=== PATIENT | female | born 1955 | race Caucasian/White ===

== ENCOUNTER 2024-01-29 15:00 | Outpatient (RCR) | payer MEDICARE, OTHER, SELFPAY | END 2024-04-16 07:42 | disposition home or self-care (01) | PROVIDERS: PCP Family Medicine; Visit Provider Physician Assistant | DX: M54.50 Low back pain, unspecified (principal); Z51.89 Encounter for other specified aftercare | CPT/HCPCS: 97110; 97140; 97161 ==

== ENCOUNTER 2024-04-11 21:14 | Emergency (ER) | payer MEDICARE, OTHER, SELFPAY ==
[2024-04-11 21:28] VITALS: BP 142/66; PULSE 62; RESP 16; TEMP 36.6; O2SAT 97; BMI 25.7
--- NOTE | 2024-04-11 22:00 | ED.GENADULT ---
HPI - General Adult General Chief complaint: Laceration/Wound Stated complaint: Laceration R thumb. Time Seen by Provider: 04/11/24 21:35 Source: patient Mode of arrival: ambulatory Limitations: no limitations History of Present Illness HPI narrative: 68-year-old female presenting today with a laceration to the right thumb that occurred while she was slicing cucumbers with a mandoline at home. Last Tdap was 2014. Denies other injuries. Related Data Home Medications ?Medication ?Instructions ?Recorded ?Confirmed bupropion HCl 150 mg 24 hr tablet, 150 mg PO DAILY 04/11/24 04/11/24 extended release gabapentin 600 mg tablet mg PO 04/11/24 sertraline 50 mg tablet 50 mg PO DAILY 04/11/24 04/11/24 Allergies Allergy/AdvReac Type Severity Reaction Status Date / Time No Known Drug Allergies Allergy Verified 04/11/24 21:30 Review of Systems Status of ROS: Reports: 6 or more systems reviewed and unremarkable except as noted in History and below Exam Narrative: Exam Narrative: Well-nourished well-developed patient, slightly anxious. Alert and oriented. Answers questions appropriately. Mood and affect are appropriate. Thoughts are goal oriented and rational. No tangential or magical thinking noted. Patient speaks in full sentences without needing to catch her breath. HEENT: Normocephalic atraumatic. Extraocular muscles are intact. Conjunctivae are moist without any icterus noted. Moist mucous membranes. Extremities: Patient cleanly sliced the lateral outer edge of the tip of the thumb, including the outer distal corner of her nail. No arterial bleeding noted, just a consistent losing. There is no bone visible. Const: Vital Signs, click to edit/add: Vital Signs - 24 hr 04/11/24 21:28 Temperature 98 F Pulse Rate [Pulse Oximeter] 62 Respiratory Rate 16 Blood Pressure [Ri ght Upper Arm] 142/66 H Pulse Oximetry 97 Oxygen Delivery Me thod Room Air Course Course ED Course: There is no skin left for us to put together, hemostatic sutures are not necessary. Fifth finger was cleaned, Gelfoam was applied followed by gauze and dressing to the remainder of the finger. We discussed healing by secondary intention. Tdap was updated today. Vital Signs Vital signs: Initial Vital Signs Temperature 98 F 04/11/24 21:28 Temperature Source Temporal Artery Scan 04/11/24 21:28 Pulse Rate 62 10/26/24 21:28 Respiratory Rate 16 04/11/24 21:28 Blood Pressure 142/66 H 04/11/24 21:28 Blood Pressure Mean 91 04/11/24 21:28 Blood Pressure Position Supine 04/11/24 21:28 Pulse Oximetry 97 04/11/24 21:28 Oxygen Delivery Method Room Air 04/11/24 21:28 Vital Signs Temperature 98 F 04/11/24 21:28 Pulse Rate 62 04/11/24 21:28 Respiratory Rate 16 04/11/24 21:28 Blood Pressure 142/66 H 04/11/24 21:28 Pulse Oximetry 97 04/11/24 21:28 Oxygen Delivery Method Room Air 04/11/24 21:28 Temperature 98 F 04/11/24 21:28 Pulse Rate 62 04/11/24 21:28 Respiratory Rate 16 04/11/24 21:28 Blood Pressure 142/66 H 04/11/24 21:28 Pulse Oximetry 97 04/11/24 21:28 Oxygen Delivery Method Room Air 04/11/24 21:28 Medical Decision Making MDM Narrative Medical decision making narrative: 5-year-old female status post avulsion laceration to the outer tip of the finger. Treated per above. Discharge Plan Discharge Clinical Impression: Laceration Patient Disposition: Home, Self-Care Condition: Stable Additional Instructions: Leave this dressing in place until the morning of 04/13/24. At that time can start daily dressing changes. Keep wound clean and dry. Do not soak such as taking baths, swimming or doing dishes. Follow-up in approximately 1 week with your primary care provider. Watch for signs and symptoms of infection including increasing redness of the area, purulent drainage, or fever. If this occurs follow-up right away with your doctor or return to the ER. Prescriptions: No Action gabapentin 600 mg tablet PO sertraline 50 mg tablet 50 mg PO DAILY bupropion HCl 150 mg tablet extended release 24 hr 150 mg PO DAILY Follow Up/Referrals: Lacy Brandt DO [Primary Care Provider] - Stand Alone [facility] Info Inst[facility]
[2024-04-11] MEDS: TETANUS/DIPHTH/PERTUSSIS 0.5 ML SYRINGE IM (22:05)
== END 2024-04-11 22:31 | disposition home or self-care (01) ==
LOC: ED 22:17
PROVIDERS: Emergency Provider Family Medicine; PCP Family Medicine
DX: S61.011A Laceration without foreign body of right thumb without damage to nail, initial encounter (principal); Z23 Encounter for immunization
CPT/HCPCS: 90471; 90715; 99283

== ENCOUNTER 2024-07-16 10:45 | Outpatient (RCR) | payer MEDICARE, OTHER, SELFPAY ==
--- OUTSIDE RECORDS SUMMARY | 2024-06-03 07:59 | XMS_ITS | Continuity of Care Document ---
Author Name [facility] Organization [facility] Care Team Providers Care Traffic Warehouse Supervisor Name Role Phone [facility] Unavailable Unavailable Medications Combined list of outpatient medications from Department of Defense and Veterans Affairs facilities.Medications provided include 1) outpatient medications from the last 15 months, and 2) patient-reported medications. Medication Details Route Status Patient Instructions Prescription Expires Prescription Number Last Dispense Date Ordering Provider Order Date Order Qty Source BUPROPION XL (bupropion HCl), 150 MG, TAB ER 24H, ORAL, LUPIN PHARMACEU, 90 ea. BOTTLE Active [id number] 3 2022 90 Pharmac y Data Transac tion Service Facilit y BUPROPION XL (bupropion HCl), 150 MG, TAB ER 24H, ORAL, LUPIN PHARMACEU, 90 ea. BOTTLE Active [id number] 4 2023 90 Pharmac y Data Transac tion Service Facilit y GABAPENTIN (GABAPENTIN ), 600MG, TABLET, ORAL, GLENMARK PHARMA, 500 ea. BOTTLE Cancele d [id number] : 2023 0 Pharmac y Data Transac tion Service Facilit y GABAPENTIN (GABAPENTIN ), 600MG, TABLET, ORAL, GLENMARK PHARMA, 500 ea. BOTTLE Active [id number] 4 2023 180 Pharmac y Data Transac tion Service Facilit y GABAPENTIN (GABAPENTIN ), 600MG, TABLET, ORAL, GLENMARK PHARMA, 500 ea. BOTTLE Active [id number] 2023 180 Pharmac y Data Transac tion Service Facilit y GABAPENTIN (GABAPENTIN ), 600MG, TABLET, ORAL, GLENMARK PHARMA, 500 ea. BOTTLE Cancele d [id number] : 2023 0 Pharmac y Data Transac tion Service Facilit y SERTRALINE HCL (SERTRALINE HCL), 50MG, TABLET, ORAL, LUPIN PHARMACEU, 500 ea. BOTTLE Active [id number] 3 2022 90 Pharmac y Data Transac tion Service Facilit y SERTRALINE HCL (SERTRALINE HCL), 50MG, TABLET, ORAL, LUPIN PHARMACEU, 500 ea. BOTTLE Active [id number] 2023 90 Pharmac y Data Transac tion Service Facilit y Immunizations Combined list of available immunizations from the Department of Defense and Veterans Affairs facilities. 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 (MOD) Not Given COVID-19, mRNA, LNP-S, PF, 100 mcg or 50 mcg dose [facility] COVID-19, mRNA, LNP-S, PF, 100 mcg or 50 mcg dose 2020 GARANICH, [employer] (MOD) Not Given COVID-19, mRNA, LNP-S, PF, 100 mcg or 50 mcg dose DoD zoster recombinant 2019 [place], () Not Given zoster recombina nt DoD zoster recombinant 2019 [place], () Not Given zoster recombina nt DoD Social History Combined list of available smoking, tobacco, and other social history from Department of Defense and Veterans Affairs facilities. Social History Type Response Date Comment [facility] e This section is an empty social history section. DoD
--- OUTSIDE RECORDS SUMMARY | 2024-06-09 08:02 | XMS_ITS | Continuity of Care Document ---
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 BOTTLE Active [id number] 3 2022 90 Pharmac y Data Transac tion Service Facilit y BUPROPION XL (bupropion HCl), 150 MG, TAB ER 24H, ORAL, LUPIN PHARMACEU, 90 ea. BOTTLE Active [id number] 2023 90 Pharmac y Data Transac tion Service Facilit y GABAPENTIN (GABAPENTIN ), 600MG, TABLET, ORAL, GLENMARK PHARMA, 500 ea. BOTTLE Cancele d [id number] : 2023 0 Pharmac y Data Transac tion Service Facilit y GABAPENTIN (GABAPENTIN ), 600MG, TABLET, ORAL, GLENMARK PHARMA, 500 ea. BOTTLE Active [id number] 4 2023 180 Pharmac y Data Transac tion Service Facilit y GABAPENTIN (GABAPENTIN ), 600MG, TABLET, ORAL, GLENMARK PHARMA, 500 ea. BOTTLE Active [id number] 2023 180 Pharmac y Data Transac tion Service Facilit y GABAPENTIN (GABAPENTIN ), 600MG, TABLET, ORAL, GLENMARK PHARMA, 500 ea. BOTTLE Cancele d [id number] : 2023 0 Pharmac y Data Transac tion Service Facilit y SERTRALINE HCL (SERTRALINE HCL), 50MG, TABLET, ORAL, LUPIN PHARMACEU, 500 ea. BOTTLE Active [id number] 2022 90 Pharmac y Data Transac tion Service Facilit y SERTRALINE HCL (SERTRALINE HCL), 50MG, TABLET, ORAL, LUPIN PHARMACEU, 500 ea. BOTTLE Active [id number] 2023 90 Pharmac y Data Transac tion Service Facilit y Immunizations Combined list of available immunizations from the Department of Defense and Veterans Affairs facilities. 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 (MOD) Not Given COVID-19, mRNA, LNP-S, PF, 100 mcg or [address] [facility] COVID-19, mRNA, LNP-S, PF, 100 mcg or 50 mcg dose 2020 GARANICH, [employer] (MOD) Not Given COVID-19, mRNA, LNP-S, PF, 100 mcg or 50 mcg dose DoD zoster recombinant 2019 [facility], () Not Given zoster recombina nt DoD zoster recombinant 2019 [facility], () Not Given zoster recombina nt DoD Social History Combined list of available smoking, tobacco, and other social history from Department of Defense and Veterans Affairs facilities. Social History Type Response Date Comment [facility] e This section is an empty social history section. DoD
== END 2024-09-02 13:33 | disposition home or self-care (01) ==
PROVIDERS: PCP Family Medicine; Visit Provider Family Medicine
DX: M89.8X1 Other specified disorders of bone, shoulder (principal); M25.512 Pain in left shoulder; G89.29 Other chronic pain; M75.22 Bicipital tendinitis, left shoulder; Z51.89 Encounter for other specified aftercare
CPT/HCPCS: 97110; 97140; 97161

== ENCOUNTER 2024-10-16 06:23 | Outpatient (CLI) | payer MEDICARE, OTHER, SELFPAY ==
--- NOTE | 2024-10-16 07:40 | P.ANES_ITS ---
Anesthesia Charges Start Date/Time Anesthesia Start Date: 10/16/24 Anesthesia Start Time: 07:13 Stop Date/Time Anesthesia Stop Date: 10/16/24 Anesthesia Stop Time: 07:37 Summary Extremes of Age - Over 70 or under 1: REGIONAL COMMERCIAL SALES MANAGER Coding CPT Codes CPT Codes: ANEPaul LWR INTST SCR COLSC - 43122 ([id number]) P2 - PATIENT W/MILD SYST DISEASE, QX - REGIONAL COMMERCIAL SALES MANAGER SVC W/ MD MED DIRECTION, QK - MEDICAL RADIATION DOSIMETRIST 2-4 CNCRNT ANES PROC Additional Codes: Summary - Extremes of Age - Over 70 or under 1: REGIONAL COMMERCIAL SALES MANAGER ([id number])
--- NOTE | 2024-10-16 07:40 | W.ANESCHARGE ---
Anesthesia Charges Start Date/Time Anesthesia Start Date: 10/16/24 Anesthesia Start Time: 07:13 Stop Date/Time Anesthesia Stop Date: 10/16/24 Anesthesia Stop Time: 07:37 Summary Extremes of Age - Over 70 or under 1: JAVA SQL DEVELOPER Coding CPT Codes CPT Codes: ANEPaul LWR INTST SCR COLSC - 94481 ([id number]) P2 - PATIENT W/MILD SYST DISEASE, QX - JAVA SQL DEVELOPER SVC W/ MD MED DIRECTION, QK - NURSING TEACHER 2-4 CNCRNT ANES PROC Additional Codes: Summary - Extremes of Age - Over 70 or under 1: JAVA SQL DEVELOPER ([id number])
--- NOTE | 2024-10-16 07:49 | P.ANES_ITS ---
Anesthesia Charges Start Date/Time Anesthesia Start Date: 10/16/24 Anesthesia Start Time: 07:13 Stop Date/Time Anesthesia Stop Date: 10/16/24 Anesthesia Stop Time: 07:37 Summary Extremes of Age - Over 70 or under 1: MDA Coding CPT Codes CPT Codes: ANES LWR INTST SCR COLSC - 38264 ([id number]) P2 - PATIENT W/MILD SYST DISEASE, QK - MICROWAVE REMOTE SENSING SCIENTIST 2-4 CNCRNT ANES PROC, QX - MECHANICAL APPLICATIONS ENGINEER SVC W/ MD MED DIRECTION Additional Codes: Summary - Extremes of Age - Over 70 or under 1: MDA ([id number])
--- NOTE | 2024-10-16 07:49 | W.ANESCHARGE ---
Anesthesia Charges Start Date/Time Anesthesia Start Date: 10/16/24 Anesthesia Start Time: 07:13 Stop Date/Time Anesthesia Stop Date: 10/16/24 Anesthesia Stop Time: 07:37 Summary Extremes of Age - Over 70 or under 1: MDA Coding CPT Codes CPT Codes: ANES LWR INTST SCR COLSC - 78569 ([id number]) P2 - PATIENT W/MILD SYST DISEASE, QK - MARKETING FINANCE MANAGER 2-4 CNCRNT ANES PROC, QX - WOOD HEEL FITTER MACHINE SVC W/ MD MED DIRECTION Additional Codes: Summary - Extremes of Age - Over 70 or under 1: MDA ([id number])
== END 2024-10-16 06:24 | disposition home or self-care (01) ==
LOC: OP CLINIC 06:24
PROVIDERS: PCP Family Medicine; Visit Provider Internal Medicine Gastroenterology
DX: Z12.11 Encounter for screening for malignant neoplasm of colon (principal)
CPT/HCPCS: 00812; 45378; 99100; J2704